=== PATIENT | male | born 2005 | race African-American/Black ===

== ENCOUNTER 2025-09-05 18:59 | Emergency (ER) | payer SELFPAY ==
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
[2025-09-05 19:01] VITALS: BP 138/85; PULSE 110; RESP 16; TEMP 36.7; O2SAT 99
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
[2025-09-05] MEDS: HYDROcodone/acetaminophen (*CRX) 5-325 MG TABLET 1 TAB PO (20:13)
== END 2025-09-05 21:59 | disposition home or self-care (01) ==
PROVIDERS: Emergency Provider Physician Assistant
DX: S02.672A Fracture of alveolus of left mandible, initial encounter for closed fracture (principal); S02.671A Fracture of alveolus of right mandible, initial encounter for closed fracture; Y04.0XXA Assault by unarmed brawl or fight, initial encounter
CPT/HCPCS: 70450; 70486; 72125; 99284; A9270